=== PATIENT | female | born 1940 | race Caucasian/White ===

== ENCOUNTER 2016-12-08 06:43 | Inpatient (IN) | payer OTHER ==
[2016-12-08] VITALS (13 sets, daily range): BP systolic 118–156; BP diastolic 40–74
[~2016-12-08] VITALS: Ht 170.2 cm; Wt 79.9 kg
[~2016-12-08 06:43] MED LIST: ANTI-DIARRHEA2 MG PO; Bactroban Nasal Oint BOTH NARES; CARDIZEM120 MG PO; CEPHALEXIN500 MG PO; CIPRO500 MG PO; COLCHICINE,COL0.6 MG PO; COUMADIN,JANTOVE5 MG PO; COUMADIN,JANTOVE6 MG PO; COUMADIN3 MG PO; COUMADIN5 MG PO; CRANBERRY CONC1 EAC1 PO; CRANBERRY EXTRACT PO; CRANBERRY TABL1 EACH PO; CYANOCOBALAM1000 MCG PO; Cipro PO; Combivent IH; DIGOX125 MCG PO; DIGOXIN125 MCG PO; DILTIAZEM 24HR120 MG PO; DITROPAN5 MG PO; DYNAPEN500 MG PO; Dulcolax PO; EFFEXOR XR150 MG PO; ELIQUIS5 MG PO; ENDOCET 5-3251 EACH PO; Ecotrin PO; Effexor PO; Effexor XR PO; Flora-Q,Risaquad PO; HYDROCHLOROTH12.5 M3 PO; Humibid LA,Mucinex PO; KEFLEX500 MG PO; LEVOTHYROXINE150 MCG PO; LIDODERM 5% P1 PATCH TD; LISINOPRIL10 MG PO; LISINOPRIL5 MG PO; LOPRESSOR25 MG PO; LORAZEPAM0.5 MG PO; LOTENSIN10 MG PO; LOVENOX40 MG/0.4 SC; Levothroid,Synthroid PO; MACROBID100 MG PO; METFORMIN HCL1000 MG PO; METFORMIN HCL500 MG PO; MOTRIN800 MG PO; NAFCIL2 GM IV; Omnicef PO; PRAVASTATIN SOD20 MG PO; PREDNISONE20 MG PO; PRILOSEC OTC20 MG PO; PROBIOTIC1 EACH PO; PYRIDIUM200 MG PO; QUESTRAN PACKET4 GM PO; REQUIP0.5 MG PO; ROPINIROLE HCL0.5 MG PO; SYNTHROID150 MCG PO; TAZTIA XT180 M1 PO; TIAZAC360 MG PO; TYLENOL REGULA325 MG PO; VENLAFAXINE HC150 M1 PO; VESICARE10 MG PO
[2016-12-08 08:29] LABS: METH RESISTANT S AUREUS PCR POSITIVE (NEGATIVE)
[2016-12-08 08:42] LABS: PROBE CHECK PASS
[2016-12-08 09:21] LABS: POINT-OF-CARE METER ID UU14174212
[2016-12-08 15:16] LABS: HEMATOCRIT 30.3 % (36.0-46.0); MCH 30.1 PG (29.0-34.0); MCV 91.3 FL (83-99); MEAN PLAT.VOLUME 9.3 uM^3 (9.5-12.4); PLATELET COUNT 267 K/uL (156-360); RBC DIS.WIDTH-CV 14.8 % (11.8-14.6); RBC DIS.WIDTH-SD 49.1 % (39-53); RED BLOOD COUNT 3.32 M/uL (3.80-5.20)
[2016-12-08 15:41] LABS: WHITE BLOOD COUNT 12.5 K/uL (4.1-10.2)
[2016-12-08 15:48] LABS: ANION GAP 13 MEQ/L (2-14); CHLORIDE 110 MEQ/L (99-109); POTASSIUM 3.7 MEQ/L (3.7-5.4); SAMPLE HEMOLYSIS CHECK 0; SAMPLE ICTERIC CHECK 0; SAMPLE LIPEMIA CHECK 0; SODIUM 143 MEQ/L (136-147)
[2016-12-08 15:53] LABS: GFR ESTIMATE (CALCULATED) 27 mL/min/; GLUCOSE 169 mg/dL (70-99); UREA NITROGEN (BUN) 56 mg/dL (9-23)
[2016-12-08 15:57] LABS: TROP-I INTERPRETATION NEGATIVE; TROPONIN-I < 0.01 ng/mL (0.0-0.30)
[2016-12-08 17:38] LABS: DIGOXIN 0.5 ng/mL (0.8-2.0)
[2016-12-08 17:45] LABS: POINT-OF-CARE METER ID UU14174217
[2016-12-08 18:36] LABS: MEAN PLAT.VOLUME 9.7 uM^3 (9.5-12.4); PLATELET COUNT 273 K/uL (156-360)
[2016-12-08 19:06] LABS: ABS NEUTROPHIL COUNT 12.23; ANISOCYTOSIS 1+; DELETE MACHINE DIFF? YES; HEMATOCRIT 32.8 % (36.0-46.0); MCH 30.4 PG (29.0-34.0); MCHC 33.8 G/DL (30.0-36.0); MCV 89.9 FL (83-99); OVALOCYTES 1+; PLAT.SUFFICIENCY ADEQUATE; POLYCHROMASIA OCC; RBC DIS.WIDTH-CV 14.7 % (11.8-14.6); RBC DIS.WIDTH-SD 48.1 % (39-53); RED BLOOD COUNT 3.65 M/uL (3.80-5.20); USER ID WCD; WHITE BLOOD COUNT 13.6 K/uL (4.1-10.2)
[2016-12-09] VITALS (12 sets, daily range): BP systolic 114–161; BP diastolic 42–64
[2016-12-09 00:01] LABS: POINT-OF-CARE METER ID UU14174217
[2016-12-09 05:48] LABS: HEMATOCRIT 30.5 % (36.0-46.0); MCH 30.3 PG (29.0-34.0); MCHC 34.4 G/DL (30.0-36.0); MCV 88.2 FL (83-99); MEAN PLAT.VOLUME 9.3 uM^3 (9.5-12.4); PLATELET COUNT 276 K/uL (156-360); RBC DIS.WIDTH-CV 14.7 % (11.8-14.6); RBC DIS.WIDTH-SD 46.8 % (39-53); RED BLOOD COUNT 3.46 M/uL (3.80-5.20)
[2016-12-09 05:53] LABS: WHITE BLOOD COUNT 8.4 K/uL (4.1-10.2)
[2016-12-09 05:58] LABS: ANION GAP 11 MEQ/L (2-14); CHLORIDE 110 MEQ/L (99-109); GFR ESTIMATE (CALCULATED) 33 mL/min/; GLUCOSE 122 mg/dL (70-99); POTASSIUM 3.9 MEQ/L (3.7-5.4); SAMPLE HEMOLYSIS CHECK 0; SAMPLE ICTERIC CHECK 0; SAMPLE LIPEMIA CHECK 0; SODIUM 141 MEQ/L (136-147); UREA NITROGEN (BUN) 50 mg/dL (9-23)
[2016-12-09 06:00] LABS: MAGNESIUM 2.1 mg/dl (1.3-2.7)
[2016-12-09 06:08] LABS: TROP-I INTERPRETATION NEGATIVE; TROPONIN-I 0.01 ng/mL (0.0-0.30)
[2016-12-09 06:09] LABS: POINT-OF-CARE METER ID UU13113748
[2016-12-09 12:03] LABS: POINT-OF-CARE METER ID UU13113803
[2016-12-09 18:06] LABS: POINT-OF-CARE METER ID UU14174217
[2016-12-10] VITALS (8 sets, daily range): BP systolic 122–181; BP diastolic 57–82
[2016-12-10 00:41] LABS: POINT-OF-CARE METER ID UU13113748
[2016-12-10 05:58] LABS: EOSINOPHIL (%) 2.1 % (0-5); EOSINOPHIL COUNT 0.2 K/uL (0-0.3); HEMATOCRIT 28.7 % (36.0-46.0); IMMATURE GRANULOCYTE (%) 0.3 % (0.0-0.7); MCH 29.7 PG (29.0-34.0); MCHC 33.1 G/DL (30.0-36.0); MCV 89.7 FL (83-99); MONOCYTE (%) 7.8 % (3-12); MONOCYTE COUNT 0.6 K/uL (0-0.8); NEUTROPHIL (%) 75.3 % (45-76); NEUTROPHIL COUNT 5.4 K/uL (1.8-6.4); PLATELET COUNT 245 K/uL (156-360); RBC DIS.WIDTH-CV 14.9 % (11.8-14.6); RBC DIS.WIDTH-SD 48.4 % (39-53); WHITE BLOOD COUNT 7.2 K/uL (4.1-10.2)
[2016-12-10 06:18] LABS: ANION GAP 6 MEQ/L (2-14); CHLORIDE 112 MEQ/L (99-109); GFR ESTIMATE (CALCULATED) 47 mL/min/; GLUCOSE 117 mg/dL (70-99); POTASSIUM 4.3 MEQ/L (3.7-5.4); SAMPLE HEMOLYSIS CHECK 0; SAMPLE ICTERIC CHECK 0; SAMPLE LIPEMIA CHECK 0; SODIUM 141 MEQ/L (136-147); UREA NITROGEN (BUN) 35 mg/dL (9-23)
[2016-12-10 12:13] LABS: POINT-OF-CARE METER ID UU13113803
[2016-12-11] VITALS (7 sets, daily range): BP systolic 130–167; BP diastolic 64–85
[2016-12-12 03:26] VITALS: BP 160/74
[2016-12-12 07:41] LABS: HEMATOCRIT 28.7 % (36.0-46.0); MCH 30.1 PG (29.0-34.0); MCHC 33.1 G/DL (30.0-36.0); MCV 90.8 FL (83-99); PLATELET COUNT 215 K/uL (156-360); RBC DIS.WIDTH-CV 14.7 % (11.8-14.6); RBC DIS.WIDTH-SD 48.5 % (39-53); RED BLOOD COUNT 3.16 M/uL (3.80-5.20); WHITE BLOOD COUNT 8.9 K/uL (4.1-10.2)
[2016-12-12 08:00] VITALS: BP 102/68
[2016-12-12 08:05] LABS: ANION GAP 8 MEQ/L (2-14); CHLORIDE 112 MEQ/L (99-109); GFR ESTIMATE (CALCULATED) > 59 mL/min/; POTASSIUM 4.5 MEQ/L (3.7-5.4); SAMPLE HEMOLYSIS CHECK 0; SAMPLE ICTERIC CHECK 0; SAMPLE LIPEMIA CHECK 0; SODIUM 142 MEQ/L (136-147)
[2016-12-12 08:06] LABS: GLUCOSE 83 mg/dL (70-99); MAGNESIUM 1.1 mg/dl (1.3-2.7); UREA NITROGEN (BUN) 14 mg/dL (9-23)
[2016-12-12 12:00] VITALS: BP 100/62
[2016-12-12 15:55] VITALS: BP 138/70
[2016-12-12 19:49] VITALS: BP 140/74
[2016-12-13] VITALS (7 sets, daily range): BP systolic 118–178; BP diastolic 71–86
[2016-12-14 00:05] VITALS: BP 167/70
[2016-12-14 02:55] VITALS: BP 162/68
[2016-12-14 07:24] VITALS: BP 162/86
[2016-12-14 12:23] VITALS: BP 152/74
[2016-12-14 15:08] VITALS: BP 144/78
[2016-12-14 20:00] VITALS: BP 120/60; BP 132/82
[2016-12-15 00:55] VITALS: BP 160/89
[2016-12-15 04:30] VITALS: BP 162/84
[2016-12-15 07:51] LABS: HEMATOCRIT 30.4 % (36.0-46.0); MCH 29.4 PG (29.0-34.0); MCHC 32.6 G/DL (30.0-36.0); MCV 90.2 FL (83-99); MEAN PLAT.VOLUME 8.9 uM^3 (9.5-12.4); PLATELET COUNT 274 K/uL (156-360); RBC DIS.WIDTH-CV 14.7 % (11.8-14.6); RBC DIS.WIDTH-SD 48.1 % (39-53); RED BLOOD COUNT 3.37 M/uL (3.80-5.20)
[2016-12-15 08:00] VITALS: BP 130/60
[2016-12-15] MEDS ORDERED: ENDOCET 5-3251 EACH PO (09:04)
[2016-12-15 11:21] VITALS: BP 134/68
== END 2016-12-15 15:12 | DRG 329 ==
LOC: 2EAST 06:43 → 2SOUTH 06:43 → 4WEST 15:25 → 2EAST 12-10 14:07
PROVIDERS: Anesthesiology; Internal Medicine Critical Care Medicine; Internal Medicine Nephrology; Surgery
DX: R15.9 Full incontinence of feces (principal); N17.9 Acute kidney failure, unspecified; L89.323 Pressure ulcer of left buttock, stage 3; E87.2 Acidosis; E87.1 Hypo-osmolality and hyponatremia; D62 Acute posthemorrhagic anemia; I48.2 Chronic atrial fibrillation; L89.892 Pressure ulcer of other site, stage 2; E83.42 Hypomagnesemia; D12.4 Benign neoplasm of descending colon; E11.22 Type 2 diabetes mellitus with diabetic chronic kidney disease; N18.3 Chronic kidney disease, stage 3 (moderate); E78.5 Hyperlipidemia, unspecified; I12.9 Hypertensive chronic kidney disease with stage 1 through stage 4 chronic kidney disease, or unspecified chronic kidney disease; Z96.659 Presence of unspecified artificial knee joint; B96.20 Unspecified Escherichia coli [E. coli] as the cause of diseases classified elsewhere
CPT/HCPCS: 36415; 80048; 80053; 80162; 82948; 83735; 84100; 84484; 85025; 85027; 85610 GA; 85730 GA; 86850; 86900; 86901; 86905; 86920; 87077; 87086; 87186; 87641; 88305; 88307; 93005; 97530 GO; 97530 GP; J0330; J1170; J1335; J1815; J2250; J2370; J2405; J2710; J3010; J3475; J7050; J7120; P9016; P9045; P9047

== ENCOUNTER 2017-03-21 12:57 | Inpatient (IN) | payer OTHER ==
[~2017-03-21] VITALS: Ht 170.2 cm; Wt 86.7 kg
[2017-03-21 13:27] LABS: EOSINOPHIL (%) 3.1 % (0-5); EOSINOPHIL COUNT 0.2 K/uL (0-0.3); HEMATOCRIT 33.2 % (36.0-46.0); IMMATURE GRANULOCYTE (%) 0.4 % (0.0-0.7); INSTRUMENT ABS NEUTROPHIL CT 5.3 K/uL; LYMPHOCYTE COUNT 1.7 K/uL (1.0-2.8); MCH 30.7 PG (29.0-34.0); MCHC 31.3 G/DL (30.0-36.0); MCV 97.9 FL (83-99); MONOCYTE (%) 7.6 % (3-12); MONOCYTE COUNT 0.6 K/uL (0-0.8); NEUTROPHIL (%) 67.5 % (45-76); NEUTROPHIL COUNT 5.3 K/uL (1.8-6.4); PLATELET COUNT 290 K/uL (156-360); RBC DIS.WIDTH-CV 13.4 % (11.8-14.6); RBC DIS.WIDTH-SD 47.9 % (39-53); RED BLOOD COUNT 3.39 M/uL (3.80-5.20); WHITE BLOOD COUNT 7.9 K/uL (4.1-10.2)
[2017-03-21 13:44] LABS: PROTHROMBIN TIME 10.5 (9.2-11.2); PTT 27.4 (25-32)
[2017-03-21 13:48] LABS: CHLORIDE 106 mEq/L (99-109); POTASSIUM 5.2 mEq/L (3.7-5.4); SODIUM 144 mEq/L (136-147)
[2017-03-21 13:49] LABS: MAGNESIUM 1.7 mg/dL (1.3-2.7)
[2017-03-21 13:50] LABS: GLUCOSE 126 mg/dL (70-99)
[2017-03-21 13:51] LABS: ANION GAP 13 MEQ/L (2-14)
[2017-03-21 13:54] LABS: GFR ESTIMATE (CALCULATED) 27 mL/min/
[2017-03-21 13:55] LABS: UREA NITROGEN (BUN) 28 mg/dL (9-23)
[2017-03-21 14:01] LABS: TROP-I INTERPRETATION NEGATIVE; TROPONIN-I 0.03 ng/mL (0.0-0.30)
[2017-03-21] MEDS ORDERED: SILVER SULFADIA50 GM TP (15:52)
[2017-03-21] MEDS ORDERED: FUROSEMIDE20 MG PO ×2 (15:53→15:56)
[2017-03-21 20:00] LABS: TROP-I INTERPRETATION NEGATIVE; TROPONIN-I 0.08 ng/mL (0.0-0.30)
[2017-03-21 23:10] VITALS: BP 114/62
[2017-03-21 23:18] VITALS: BP 114/62
[2017-03-22] VITALS (21 sets, daily range): BP systolic 93–141; BP diastolic 45–86
[2017-03-22 00:46] LABS: TROP-I INTERPRETATION NEGATIVE; TROPONIN-I 0.09 ng/mL (0.0-0.30)
[2017-03-22 05:54] LABS: HEMATOCRIT 28.3 % (36.0-46.0); MCH 31.5 PG (29.0-34.0); MCHC 32.2 G/DL (30.0-36.0); MCV 97.9 FL (83-99); PLATELET COUNT 252 K/uL (156-360); RBC DIS.WIDTH-CV 13.4 % (11.8-14.6); RBC DIS.WIDTH-SD 48.2 % (39-53); RED BLOOD COUNT 2.89 M/uL (3.80-5.20); WHITE BLOOD COUNT 6.2 K/uL (4.1-10.2)
[2017-03-22 06:46] LABS: ANION GAP 10 MEQ/L (2-14); CHLORIDE 108 MEQ/L (99-109); GFR ESTIMATE (CALCULATED) 33 mL/min/; POTASSIUM 4.6 MEQ/L (3.7-5.4); SAMPLE HEMOLYSIS CHECK 0; SAMPLE ICTERIC CHECK 0; SAMPLE LIPEMIA CHECK 0; SODIUM 143 MEQ/L (136-147); UREA NITROGEN (BUN) 24 mg/dL (9-23)
[2017-03-22 06:55] LABS: GLUCOSE 88 mg/dL (70-99)
[2017-03-23] VITALS (25 sets, daily range): BP systolic 97–154; BP diastolic 55–99
[2017-03-23 04:42] LABS: HEMATOCRIT 27.5 % (36.0-46.0); MCH 30.6 PG (29.0-34.0); MCHC 31.6 G/DL (30.0-36.0); MCV 96.8 FL (83-99); MEAN PLAT.VOLUME 8.7 uM^3 (9.5-12.4); PLATELET COUNT 213 K/uL (156-360); RBC DIS.WIDTH-CV 13.2 % (11.8-14.6); RBC DIS.WIDTH-SD 47.2 % (39-53); RED BLOOD COUNT 2.84 M/uL (3.80-5.20); WHITE BLOOD COUNT 5.7 K/uL (4.1-10.2)
[2017-03-23 04:57] LABS: CHLORIDE 112 mEq/L (99-109); POTASSIUM 3.8 mEq/L (3.7-5.4); SODIUM 143 mEq/L (136-147)
[2017-03-23 04:58] LABS: GLUCOSE 101 mg/dL (70-99)
[2017-03-23 05:00] LABS: ANION GAP 8 MEQ/L (2-14)
[2017-03-23 05:02] LABS: GFR ESTIMATE (CALCULATED) 36 mL/min/
[2017-03-23 05:03] LABS: UREA NITROGEN (BUN) 25 mg/dL (9-23)
[2017-03-24 00:12] LABS: INTERNAL CONTROL VALID? YES
[2017-03-24 03:20] VITALS: BP 134/74
[2017-03-24 06:04] LABS: HEMATOCRIT 28.2 % (36.0-46.0); MCHC 31.9 G/DL (30.0-36.0); MCV 97.2 FL (83-99); MEAN PLAT.VOLUME 8.6 uM^3 (9.5-12.4); PLATELET COUNT 220 K/uL (156-360); RBC DIS.WIDTH-CV 12.9 % (11.8-14.6); RBC DIS.WIDTH-SD 45.9 % (39-53); WHITE BLOOD COUNT 7.3 K/uL (4.1-10.2)
[2017-03-24 09:13] VITALS: BP 136/64
[2017-03-24 12:11] VITALS: BP 132/60
[2017-03-24 15:35] VITALS: BP 122/58
[2017-03-24 20:19] VITALS: BP 124/59
[2017-03-25] VITALS (7 sets, daily range): BP systolic 114–160; BP diastolic 60–72
[2017-03-26 04:30] VITALS: BP 145/75
[2017-03-26 07:06] LABS: HEMATOCRIT 27.1 % (36.0-46.0); MCH 30.6 PG (29.0-34.0); MCHC 32.1 G/DL (30.0-36.0); MCV 95.4 FL (83-99); MEAN PLAT.VOLUME 9.2 uM^3 (9.5-12.4); PLATELET COUNT 232 K/uL (156-360); RBC DIS.WIDTH-CV 12.8 % (11.8-14.6); RBC DIS.WIDTH-SD 44.2 % (39-53); RED BLOOD COUNT 2.84 M/uL (3.80-5.20); WHITE BLOOD COUNT 5.6 K/uL (4.1-10.2)
[2017-03-26 08:00] VITALS: BP 146/70
[2017-03-26 10:26] LABS: ANION GAP 8 MEQ/L (2-14); CHLORIDE 108 MEQ/L (99-109); GFR ESTIMATE (CALCULATED) 31 mL/min/; GLUCOSE 91 mg/dL (70-99); SAMPLE HEMOLYSIS CHECK 0; SAMPLE ICTERIC CHECK 0; SAMPLE LIPEMIA CHECK 0; SODIUM 140 MEQ/L (136-147)
[2017-03-26 10:27] LABS: UREA NITROGEN (BUN) 46 mg/dL (9-23)
[2017-03-26 12:00] VITALS: BP 149/67
[2017-03-26] MEDS ORDERED: ASPIR-LOW81 MG PO (12:53)
[2017-03-26] MEDS ORDERED: LOPRESSOR25 MG PO (12:53)
[2017-03-26] MEDS ORDERED: DILTIAZEM 24HR120 MG PO (12:53)
[2017-03-26 16:36] VITALS: BP 159/70
[2017-03-26 19:00] VITALS: BP 128/60
[2017-03-27] VITALS: BP 151/70
[2017-03-27 03:32] VITALS: BP 133/60
[2017-03-27 07:18] VITALS: BP 162/70
[2017-03-27 11:24] VITALS: BP 150/70
== END 2017-03-27 17:37 | DRG 309 ==
LOC: EME 12:57 → 4EAST 16:02 → EDOF 16:02 → 4EAST 23:01
PROVIDERS: Emergency Medicine; Hospitalist
DX: I48.0 Paroxysmal atrial fibrillation (principal); N17.9 Acute kidney failure, unspecified; N18.3 Chronic kidney disease, stage 3 (moderate); R33.9 Retention of urine, unspecified; I13.0 Hypertensive heart and chronic kidney disease with heart failure and stage 1 through stage 4 chronic kidney disease, or unspecified chronic kidney disease; I50.32 Chronic diastolic (congestive) heart failure; K63.5 Polyp of colon; Z90.49 Acquired absence of other specified parts of digestive tract; Z93.3 Colostomy status; E78.5 Hyperlipidemia, unspecified; E03.9 Hypothyroidism, unspecified; E11.22 Type 2 diabetes mellitus with diabetic chronic kidney disease; L89.152 Pressure ulcer of sacral region, stage 2; H91.90 Unspecified hearing loss, unspecified ear; G25.81 Restless legs syndrome; Z96.659 Presence of unspecified artificial knee joint; R53.1 Weakness; I08.0 Rheumatic disorders of both mitral and aortic valves; R32 Unspecified urinary incontinence; E86.0 Dehydration; D63.1 Anemia in chronic kidney disease; F32.9 Major depressive disorder, single episode, unspecified; R15.9 Full incontinence of feces; T14.8 Other injury of unspecified body region
CPT/HCPCS: 71010; 71020; 80048; 82272; 83735; 84484; 85025; 85027; 85610; 85730; 93005; 99281; 99285; J2405; J7030; J7050

== ENCOUNTER 2017-09-28 13:39 | Inpatient (IN) | payer OTHER ==
[~2017-09-28] VITALS: Ht 165.1 cm; Wt 103.8 kg
[~2017-09-28 13:39] MED LIST changes: +ASPIR-LOW81 MG PO; +FUROSEMIDE20 MG PO; +FUROSEMIDE40 MG PO; +SILVER SULFADIA50 GM TP
[2017-09-28 14:30] LABS: EOSINOPHIL (%) 3.9 % (0-5); EOSINOPHIL COUNT 0.3 K/uL (0-0.3); HEMATOCRIT 33.2 % (36.0-46.0); IMMATURE GRANULOCYTE (%) 0.5 % (0.0-0.7); INSTRUMENT ABS NEUTROPHIL CT 5.4 K/uL; LYMPHOCYTE COUNT 1.8 K/uL (1.0-2.8); MCH 31.5 PG (29.0-34.0); MCHC 33.7 G/DL (30.0-36.0); MCV 93.3 FL (83-99); MEAN PLAT.VOLUME 8.7 uM^3 (9.5-12.4); MONOCYTE (%) 7.6 % (3-12); MONOCYTE COUNT 0.6 K/uL (0-0.8); NEUTROPHIL (%) 66.2 % (45-76); NEUTROPHIL COUNT 5.4 K/uL (1.8-6.4); PLATELET COUNT 252 K/uL (156-360); RBC DIS.WIDTH-CV 13.6 % (11.8-14.6); RBC DIS.WIDTH-SD 46.4 % (39-53); RED BLOOD COUNT 3.56 M/uL (3.80-5.20); WHITE BLOOD COUNT 8.2 K/uL (4.1-10.2)
[2017-09-28 14:37] LABS: CHLORIDE 96 mEq/L (99-109); POTASSIUM 4.8 mEq/L (3.7-5.4); SODIUM 136 mEq/L (136-147)
[2017-09-28 14:39] LABS: GLUCOSE 164 mg/dL (70-99)
[2017-09-28 14:41] LABS: ANION GAP 11 MEQ/L (2-14); TOTAL BILIRUBIN 0.3 mg/dL (0.0-1.0)
[2017-09-28 14:43] LABS: ALKALINE PHOSPHATASE 121 IU/L (3-129); GFR ESTIMATE (CALCULATED) 33 mL/min/
[2017-09-28 14:44] LABS: UREA NITROGEN (BUN) 37 mg/dL (9-23)
[2017-09-28 14:49] LABS: TROP-I INTERPRETATION NEGATIVE; TROPONIN-I < 0.01 ng/mL (0.0-0.30)
[2017-09-28] MEDS ORDERED: ASPIR 8181 M1 PO (16:51)
[2017-09-28] MEDS ORDERED: CARDIZEM120 MG PO (16:51)
[2017-09-28] MEDS ORDERED: LISINOPRIL10 MG PO (16:52)
[2017-09-28 21:32] LABS: TROP-I INTERPRETATION NEGATIVE; TROPONIN-I 0.01 ng/mL (0.0-0.30)
[2017-09-28 21:42] VITALS: BP 174/78
[2017-09-29 02:56] VITALS: BP 137/77
[2017-09-29 02:59] LABS: HEMATOCRIT 30.9 % (36.0-46.0); MCH 32.2 PG (29.0-34.0); MCV 92.2 FL (83-99); MEAN PLAT.VOLUME 8.9 uM^3 (9.5-12.4); PLATELET COUNT 247 K/uL (156-360); RBC DIS.WIDTH-CV 13.6 % (11.8-14.6); RBC DIS.WIDTH-SD 45.9 % (39-53); RED BLOOD COUNT 3.35 M/uL (3.80-5.20); WHITE BLOOD COUNT 8.3 K/uL (4.1-10.2)
[2017-09-29 03:16] LABS: CHLORIDE 102 mEq/L (99-109); POTASSIUM 4.6 mEq/L (3.7-5.4); SODIUM 140 mEq/L (136-147)
[2017-09-29 03:18] LABS: GLUCOSE 126 mg/dL (70-99)
[2017-09-29 03:19] LABS: ANION GAP 9 MEQ/L (2-14)
[2017-09-29 03:22] LABS: GFR ESTIMATE (CALCULATED) 29 mL/min/; TROP-I INTERPRETATION NEGATIVE; TROPONIN-I 0.01 ng/mL (0.0-0.30); UREA NITROGEN (BUN) 38 mg/dL (9-23)
[2017-09-29 07:00] VITALS: BP 142/63
[2017-09-29 11:10] VITALS: BP 113/53
[2017-09-29 15:05] VITALS: BP 106/50
[2017-09-29 18:54] VITALS: BP 113/61
[2017-09-29 23:05] VITALS: BP 127/60
[2017-09-30 00:13] VITALS: BP 114/58
[2017-09-30 04:05] VITALS: BP 133/64
[2017-09-30 06:44] VITALS: BP 163/93
[2017-09-30 09:35] LABS: HEMATOCRIT 28.7 % (36.0-46.0); MCH 32.3 PG (29.0-34.0); MCHC 33.8 G/DL (30.0-36.0); MCV 95.7 FL (83-99); PLATELET COUNT 194 K/uL (156-360); RBC DIS.WIDTH-CV 13.9 % (11.8-14.6); RBC DIS.WIDTH-SD 48.5 % (39-53); WHITE BLOOD COUNT 6.2 K/uL (4.1-10.2)
[2017-09-30 09:59] LABS: ANION GAP 10 MEQ/L (2-14); CHLORIDE 103 MEQ/L (99-109); GFR ESTIMATE (CALCULATED) 27 mL/min/; POTASSIUM 4.2 MEQ/L (3.7-5.4); SAMPLE HEMOLYSIS CHECK 0; SAMPLE ICTERIC CHECK 0; SAMPLE LIPEMIA CHECK 0; SODIUM 141 MEQ/L (136-147); UREA NITROGEN (BUN) 43 mg/dL (9-23)
[2017-09-30 10:01] LABS: GLUCOSE 201 mg/dL (70-99)
[2017-09-30 15:28] VITALS: BP 144/94
[2017-09-30 19:53] VITALS: BP 124/60
[2017-09-30 23:38] VITALS: BP 142/67
[2017-10-01 03:59] VITALS: BP 162/74
[2017-10-01 05:47] LABS: EOSINOPHIL (%) 4.8 % (0-5); EOSINOPHIL COUNT 0.3 K/uL (0-0.3); HEMATOCRIT 29.1 % (36.0-46.0); IMMATURE GRANULOCYTE (%) 0.4 % (0.0-0.7); INSTRUMENT ABS NEUTROPHIL CT 3.4 K/uL; LYMPHOCYTE COUNT 1.4 K/uL (1.0-2.8); MCH 32.2 PG (29.0-34.0); MCHC 33.7 G/DL (30.0-36.0); MCV 95.7 FL (83-99); MONOCYTE (%) 7.7 % (3-12); MONOCYTE COUNT 0.4 K/uL (0-0.8); NEUTROPHIL (%) 60.6 % (45-76); NEUTROPHIL COUNT 3.4 K/uL (1.8-6.4); PLATELET COUNT 200 K/uL (156-360); RBC DIS.WIDTH-CV 13.6 % (11.8-14.6); RBC DIS.WIDTH-SD 47.4 % (39-53); RED BLOOD COUNT 3.04 M/uL (3.80-5.20); WHITE BLOOD COUNT 5.6 K/uL (4.1-10.2)
[2017-10-01 06:11] LABS: ANION GAP 9 MEQ/L (2-14); CHLORIDE 105 MEQ/L (99-109); GFR ESTIMATE (CALCULATED) 27 mL/min/; GLUCOSE 131 mg/dL (70-99); POTASSIUM 4.3 MEQ/L (3.7-5.4); SAMPLE HEMOLYSIS CHECK 0; SAMPLE ICTERIC CHECK 0; SAMPLE LIPEMIA CHECK 0; SODIUM 142 MEQ/L (136-147); UREA NITROGEN (BUN) 40 mg/dL (9-23)
[2017-10-01 07:21] VITALS: BP 164/77
[2017-10-01 11:09] VITALS: BP 115/58
[2017-10-01 15:00] VITALS: BP 132/60
[2017-10-01 20:10] VITALS: BP 135/62
[2017-10-02 00:36] VITALS: BP 158/71
[2017-10-02 04:10] VITALS: BP 167/72
[2017-10-02 07:52] VITALS: BP 168/70
[2017-10-02 12:23] VITALS: BP 148/68
[2017-10-02 16:18] VITALS: BP 154/66
[2017-10-02 20:15] VITALS: BP 163/78
[2017-10-03] VITALS (7 sets, daily range): BP systolic 117–181; BP diastolic 59–86
[2017-10-03 07:06] LABS: ANION GAP 7 MEQ/L (2-14); CHLORIDE 104 MEQ/L (99-109); GFR ESTIMATE (CALCULATED) 33 mL/min/; GLUCOSE 133 mg/dL (70-99); POTASSIUM 4.6 MEQ/L (3.7-5.4); SAMPLE HEMOLYSIS CHECK 0; SAMPLE ICTERIC CHECK 0; SAMPLE LIPEMIA CHECK 0; SODIUM 140 MEQ/L (136-147); UREA NITROGEN (BUN) 34 mg/dL (9-23)
[2017-10-04 03:37] VITALS: BP 155/73
[2017-10-04 03:57] VITALS: BP 132/76
[2017-10-04 07:33] VITALS: BP 153/68
[2017-10-04] MEDS ORDERED: SPIRONOLACTONE25 MG PO (12:20)
[2017-10-04] MEDS ORDERED: CEPHALEXIN500 MG PO (12:20)
[2017-10-04 16:44] VITALS: BP 135/61
== END 2017-10-04 17:02 | DRG 291 ==
LOC: EME 13:39 → EDOF 16:10 → 5EAST 16:10 → ENRESERV 16:19 → 5EAST 21:15
PROVIDERS: Emergency Medicine; Hospitalist; Physician Assistant Medical
DX: I13.0 Hypertensive heart and chronic kidney disease with heart failure and stage 1 through stage 4 chronic kidney disease, or unspecified chronic kidney disease (principal); I50.33 Acute on chronic diastolic (congestive) heart failure; I48.0 Paroxysmal atrial fibrillation; L03.119 Cellulitis of unspecified part of limb; E03.9 Hypothyroidism, unspecified; G25.81 Restless legs syndrome; F32.9 Major depressive disorder, single episode, unspecified; Z96.659 Presence of unspecified artificial knee joint; T81.89XA Other complications of procedures, not elsewhere classified, initial encounter; L89.311 Pressure ulcer of right buttock, stage 1; N18.3 Chronic kidney disease, stage 3 (moderate); E66.01 Morbid (severe) obesity due to excess calories; I35.0 Nonrheumatic aortic (valve) stenosis; E78.5 Hyperlipidemia, unspecified; Z68.37 Body mass index [BMI] 37.0-37.9, adult; Z90.710 Acquired absence of both cervix and uterus; Z90.49 Acquired absence of other specified parts of digestive tract; Z23 Encounter for immunization; Z74.01 Bed confinement status; Z79.01 Long term (current) use of anticoagulants; Z79.82 Long term (current) use of aspirin; Z87.442 Personal history of urinary calculi; Z93.3 Colostomy status; Z82.49 Family history of ischemic heart disease and other diseases of the circulatory system
CPT/HCPCS: 71010; 71020; 80048; 80053; 83880; 84484; 85025; 85027; 90686; 93005; 93306; 93970; 97530 GO; 97530 GP; 99281; 99285; A6214; J0690; J1940